=== PATIENT | male | born 1940 | race Caucasian/White ===

== ENCOUNTER → 2016-12-05 | Outpatient (CLI) | payer MEDICARE ==
[~2016-12-05] MED LIST: ASPIRIN EC81 MG PO; CIPRO 500MG TA500 MG PO; FLOVENT DI50 MCG/ACT IH; HYDROCHLOROTH12.5 M1 PO; JANUVIA50 M1 PO; LISINOPRIL 5MG T5 MG PO; METFORMIN ER500 MG PO; MULTI VITAMINS1 TA1 PO; NEURONTIN 100100 MG PO; RANITIDINE HCL150 MG PO; SIMVASTATIN20 MG PO; TAMSULOSIN HYD0.4 MG
[2016-12-05 07:15] LABS: HEMOGLOBIN 13.2 g/dL (14.1-18.0); LYMPH # 2.4 K/mm3 (0.7-4.5); LYMPH % 35.8 % (10-50)
[2016-12-05 08:48] LABS: BUN 24 mg/dL (7-18); GFR (ESTIMATED) 65 ML/MIN (>60); PROSTATE-SPECIFIC ANTIGEN F/U 11.7 ng/mL (0.0-4.0)
== END ==
LOC: LAB 06:51
PROVIDERS: Family Medicine
DX: E78.5 Hyperlipidemia, unspecified (principal); I10 Essential (primary) hypertension; E11.9 Type 2 diabetes mellitus without complications; Z12.5 Encounter for screening for malignant neoplasm of prostate; N40.1 Benign prostatic hyperplasia with lower urinary tract symptoms

== ENCOUNTER → 2017-04-02 | Outpatient (CLI) | payer MEDICARE ==
--- NOTE | 2017-04-02 13:27 | CARDIOVASCULAR REPORT ---
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 IMPRESSIONS 1. The bilateral vertebral arteries are patent with normal antegrade flow. 2. Study suggests 20-49% stenosis involving the right internal carotid artery and the left internal carotid artery. No change from the study of 09-Aug-2014. Carotid duplex study. Complete study and Doppler flow study including spectral analysis, color and mcfarland scale imaging. Location: Vascular laboratory. Patient status: Outpatient. Tables: Arterial flow: + +--------+--------+ |Location |V sys |V ed | + +--------+--------+ |Right CCA - proximal|62.9cm/s|14.1cm/s| + +--------+--------+ |Right CCA - distal |54.2cm/s|15.7cm/s| + +--------+--------+ |Right ECA |41.6cm/s|--------| + +--------+--------+ |Right ICA - proximal|63.6cm/s|14.1cm/s| + +--------+--------+ |Right ICA - mid |76.2cm/s|25.9cm/s| + +--------+--------+ |Right ICA - distal |57.4cm/s|18.1cm/s| + +--------+--------+ |Right vertebral |43.2cm/s|--------| + +--------+--------+ |Left CCA - proximal |57.4cm/s|15.7cm/s| + +--------+--------+ |Left CCA - distal |51.9cm/s|14.9cm/s| + +--------+--------+ |Left ECA |89.6cm/s|--------| + +--------+--------+ |Left ICA - proximal |47.1cm/s|16.5cm/s| + +--------+--------+ |Left ICA - mid |53.4cm/s|20.4cm/s| + +--------+--------+ |Left ICA - distal |69.9cm/s|25.9cm/s| + +--------+--------+ |Left vertebral |33.8cm/s|--------| + +--------+--------+ Velocity ratios: + + + + + + | |Right, V sys|Right, V ed|Left, V sys|Left, V ed| + + + + + + |Max ICA/dist CCA|1.41 |1.65 |1.35 |1.74 | + + + + + + (Report amended ) Electronically signed by: Shashi Reyes [id number]"
== END ==
LOC: RT 12:51
DX: I65.23 Occlusion and stenosis of bilateral carotid arteries (principal)